=== PATIENT | female | born 1995 | race Caucasian/White ===

== ENCOUNTER 2022-02-05 11:34 | Emergency (ER) | payer BC ==
[~2022-02-05] VITALS: Ht 160 cm; Wt 57.0 kg
[2022-02-05 11:41] VITALS: BP 109/76
[2022-02-05] MEDS ORDERED: LIDOCAINE HCL/PF 1% 10 MG/ML 5ML VIAL INFIL ONE (14:45)
[2022-02-05] MEDS ORDERED: BACITRACIN ZINC OINT UDPKT TOP ONE (14:45)
== END 2022-02-05 14:29 | disposition home or self-care (01) ==
LOC: ER 11:34
DX: S01.112A Laceration without foreign body of left eyelid and periocular area, initial encounter (principal); W01.10XA Fall on same level from slipping, tripping and stumbling with subsequent striking against unspecified object, initial encounter; Y93.89 Activity, other specified; Y92.014 Private driveway to single-family (private) house as the place of occurrence of the external cause
CPT/HCPCS: 12011; 99282